=== PATIENT | male | born 1980 | race Caucasian/White ===

== ENCOUNTER → 2020-01-07 16:29 | Outpatient (CLI) | payer BC, SELFPAY ==
--- NOTE | ~2020-01-07 | XR_ITS ---
EXAMINATION: XR knee RT 3V DATE: 01/07/2020 16:55 INDICATION: Right knee pain and swelling. TECHNIQUE: 3 views of right knee were obtained. COMPARISON: None. FINDINGS: Bone alignment is normal. No fracture. There is mild tricompartmental osteoarthritis. No kn ee joint effusion. There is superficial infrapatellar bursitis. IMPRESSION: 1. Superficial infrapatellar bursitis. 2. Mild right knee osteoarthritis. Reviewed, dictated and finalized at location A.
== END ==
PROVIDERS: PCP Physician Assistant; Visit Provider Physician Assistant
DX: M17.11 Unilateral primary osteoarthritis, right knee (principal); M70.51 Other bursitis of knee, right knee
CPT/HCPCS: 73562